=== PATIENT | male | born 1970 | race Asian ===

== ENCOUNTER 2025-02-15 23:16 | Emergency (ER) | payer MEDICAID ==
[~2025-02-15] VITALS: Ht 170.2 cm; Wt 75.8 kg
[2025-02-15 23:29] VITALS: O2SAT 20
[2025-02-16] MEDS: KETOROLAC 15MG/ML VIAL IM ONE (00:40)
[2025-02-16] MEDS: LIDOCAINE 5% PATCH TOP SCH (00:42)
[2025-02-16] MEDS ORDERED: LIDO-53 TP (01:21)
[2025-02-16] MEDS ORDERED: NAPR-1176 MT (01:21)
[2025-02-16 01:26] VITALS: BP 119/81; PULSE 83; RESP 18; TEMP 37.1; O2SAT 20
== END 2025-02-16 01:29 | disposition home or self-care (01) ==
LOC: ER 23:16
DX: M54.41 Lumbago with sciatica, right side (principal)
CPT/HCPCS: 99283; 96372; J1885; Z7610